=== PATIENT | male | born 1945 | race Caucasian/White ===

== ENCOUNTER 2018-01-03 08:14 | Day surgery (SDC) | payer MEDICARE, BC ==
[2018-01-03] VITALS (7 sets, daily range): BP systolic 115–145; BP diastolic 62–75; PULSE 70–79; TEMP 97.9
[~2018-01-03] VITALS: Ht 170.2 cm; Wt 132.0 kg
[~2018-01-03 08:14] MED LIST: ALDACTONE 25MG25 M1 PO; CEPHALEXIN500 M1 PO; COUMADIN 6MG6 MG/TAB PO; ELIQUIS 5MG PO; GLUCOTROL10 MG PO; LANTUS100 U/ML SC; LANTUS100 U/ML SQ; PACERONE200 MG PO; PRINZIDE 12.5 M1 TA1 PO; SYNTHROID0.05 MG/TA PO; SYNTHROID0.075 MG/T PO; SYNTHROID0.2 MG/TAB PO; TRADJENTA5 MG PO; ZIAC 5/6.25MG T1 TAB PO
[2018-01-03 08:56] LABS: HEMATOCRIT 39.4 % (42.0-52.0); HEMOGLOBIN 12.9 g/dl (13.5-18.0); MEAN CELL VOLUME 88 fl (80.0-100.0); MEAN CORPUSCULAR HEMOGLOBIN 29 pg (27.0-31.0); MEAN CORPUSCULAR HGB CONC 33 g/dl (33.0-37.0); MEAN PLATELET VOLUME 9.7 fl (7.4-10.4); PLATELET COUNT 230 K/mm3 (130-400); REDCELL DISTRIBUTION WIDTH-CV 13.5 % (11.5-14.5)
[2018-01-03 08:59] LABS: INR 2.8 (0.8-3.0); PROTHROMBIN TIME 33.7 SECONDS (9.7-12.8)
[2018-01-03 09:07] LABS: CALCIUM 9.2 mg/dL (8.4-10.2); CREATININE, serum 1.43 mg/dL (0.66-1.25); POTASSIUM 4.8 mmol/L (3.4-5.0)
[2018-01-03] MEDS ORDERED: LANTUS100 U/ML SQ (09:14)
[2018-01-03] MEDS ORDERED: NOVOLOG 100U100 U/M1 SQ (09:31)
[2018-01-03] MEDS ORDERED: ACTOS 15MG TAB15 MG PO (09:33)
[2018-01-03] MEDS ORDERED: OMEGA-3 1000 MG1 CAP PO (09:34)
[2018-01-03] MEDS ORDERED: ADVIL200 MG PO (09:34)
== END 2018-01-03 12:42 | disposition home or self-care (01) ==
LOC: COL.CAR 08:14
PROVIDERS: Internal Medicine Cardiovascular Disease
DX: I48.91 Unspecified atrial fibrillation (principal); I34.0 Nonrheumatic mitral (valve) insufficiency; I12.9 Hypertensive chronic kidney disease with stage 1 through stage 4 chronic kidney disease, or unspecified chronic kidney disease; E11.22 Type 2 diabetes mellitus with diabetic chronic kidney disease; N18.9 Chronic kidney disease, unspecified; I42.9 Cardiomyopathy, unspecified; Z88.8 Allergy status to other drugs, medicaments and biological substances; Z79.4 Long term (current) use of insulin; Z79.01 Long term (current) use of anticoagulants; Z87.891 Personal history of nicotine dependence; Z82.49 Family history of ischemic heart disease and other diseases of the circulatory system; Z68.41 Body mass index [BMI] 40.0-44.9, adult
CPT/HCPCS: G9654; J2704

== ENCOUNTER 2018-12-07 06:06 | Day surgery (SDC) | payer MEDICARE, BC ==
[~2018-12-07] VITALS: Ht 171.4 cm; Wt 134.6 kg
[~2018-12-07 06:06] MED LIST changes: +ACTOS 15MG TAB15 MG PO; +ADVIL200 MG PO; +NOVOLOG 100U100 U/M1 SQ; +OMEGA-3 1000 MG1 CAP PO
[2018-12-07 07:06] VITALS: BP 141/66; PULSE 69; TEMP 98.6
[2018-12-07] MEDS ORDERED: SYNTHROID0.125 MG/T PO (07:24)
[2018-12-07] MEDS ORDERED: COUMADIN 5MG5 MG/TAB PO (07:29)
[2018-12-07] MEDS ORDERED: COUMADIN 1MG1 MG/TAB PO (07:29)
[2018-12-07 08:10] VITALS: BP 133/70; PULSE 72; TEMP 98
--- NOTE | 2018-12-07 08:10 | NUR ---
TO BAY 2 VIA CART FROM [facility], PT WALKED TO CHAIR, IN ROOM, CALL LIGHT IN REACH. PT SIPS ON WATER
[2018-12-07 08:25] VITALS: BP 134/67; PULSE 69
[2018-12-07 08:40] VITALS: BP 128/68; PULSE 71
--- NOTE | 2018-12-07 08:45 | NUR ---
DR LANDRY SEE PT AND , NO C/O, REVIEWED DISCHARGE INST. WITH PT, PRECAUTIONS AND NEXT SCREENING WITH VERBAL UNDERSTANDING. INT D'CD INTACT. PT UP IN ROOM DRESSED, DISCHARGED VIA W/C TO CAR WITH AT 0850
== END 2018-12-07 08:45 | disposition home or self-care (01) ==
LOC: SDCO 06:06
DX: Z12.11 Encounter for screening for malignant neoplasm of colon (principal); K57.30 Diverticulosis of large intestine without perforation or abscess without bleeding; E89.0 Postprocedural hypothyroidism; Z85.850 Personal history of malignant neoplasm of thyroid; K21.9 Gastro-esophageal reflux disease without esophagitis; K44.9 Diaphragmatic hernia without obstruction or gangrene; R20.2 Paresthesia of skin; R60.0 Localized edema; I10 Essential (primary) hypertension; G47.33 Obstructive sleep apnea (adult) (pediatric); Z79.01 Long term (current) use of anticoagulants; Z79.899 Other long term (current) drug therapy; E11.9 Type 2 diabetes mellitus without complications; Z79.4 Long term (current) use of insulin
CPT/HCPCS: J2704; J7030

== ENCOUNTER 2020-11-16 11:03 | Inpatient (IN) | payer MEDICARE, BC ==
[~2020-11-16] VITALS: Ht 170.2 cm; Wt 125.0 kg
[~2020-11-16 11:03] MED LIST changes: +COUMADIN 1MG1 MG/TAB PO; +COUMADIN 5MG5 MG/TAB PO; +SYNTHROID0.125 MG/T PO
--- NOTE | 2020-11-16 13:00 | NUR ---
Assessment completed, alert/oriented, vital signs stable, denies pain or discomfort, lungs diminished throughout/ no coarse or crackles noted, patient is on 15L oxymask, heart RRR/ distal pulses are palpable, cardiology was consulted for Ectopy/arrythmias noted from previous facility, meds/allergies/pharmacy reviewed and updated, notified of patient arrival, will continue to monitor
[2020-11-16] MEDS ORDERED: NOVOLOG 100U100 U/M1 SQ (13:30)
[2020-11-16] MEDS ORDERED: LASIX 20MG TABL20 MG PO (13:39)
[2020-11-16 15:42] LABS: ARTERIAL BLD GAS O2 SATURATION 94.6 % (92-100); ARTERIAL BLD GAS TCO2 CT 18.2; ARTERIAL BLOOD GAS BASE EXCESS -6.5 (-2-2); ARTERIAL BLOOD GAS HCO3 17.3 meq/L (22-26); ARTERIAL BLOOD GAS pH 7.38 (7.35-7.45)
[2020-11-16 16:00] VITALS: BP 126/64; PULSE 80; TEMP 98.3
[2020-11-16 16:29] VITALS: BP 126/64; PULSE 80; TEMP 98.3
[2020-11-16 18:16] VITALS: TEMP 98
[2020-11-16 20:03] VITALS: BP 118/38; PULSE 70; TEMP 98.3
--- NOTE | 2020-11-16 20:27 | NUR ---
Entered pt room for scheduled O2 check; pt not wearing mask, oxymask wrapped at his feet, tachypnea, and clenching bed rail while laying down, in distess, SpO2 70-73%. Untangled and replaced Oxymask, running at 15+ LPM, took many minutes for sats to reach mid-upper 80s, plateauing. Preped pt's CPAP from home to place on pt while going to get differed mode of O2 to better meet pt's needs. which, thankfully, had a high prescription of [id number] set. Bleeding O2 into home CPAP at 15 LPM, pt's sats recovered to 94%, HR 70, BR and distress easing, pt relaxing. Considering improvement, will monitor pt's status before recommending BiPAP to provider. Got pt a urinal to use in bed and insturcted him to never take his O2 off, and to call for help if the need arises for him to get out of bed. Nurse's aide is aware, will figure out who nurse is and inform as well.
--- NOTE | 2020-11-16 20:45 | NUR ---
Pt assessment complete. Pt is sleeping in bed upon entry, arouses to voice. Currently wearing his Cpap. Pt denies any pain, but does jump with pain when bilateral legs are touched. Has no N/V/D. POC discussed with patient who verbalizes understanding. No needs at this time. Call light within reach.
[2020-11-16 23:47] VITALS: BP 92/46; PULSE 68; TEMP 99.1
[2020-11-17 04:22] VITALS: BP 98/59; PULSE 74; TEMP 97.7
[2020-11-17 07:51] LABS: HEMATOCRIT 41.7 % (42.0-52.0); MEAN CELL VOLUME 85 fl (80.0-100.0); MEAN CORPUSCULAR HEMOGLOBIN 28 pg (27.0-31.0); MEAN CORPUSCULAR HGB CONC 34 g/dl (33.0-37.0); MEAN PLATELET VOLUME 11.2 fl (7.4-10.4); PLATELET COUNT 255 K/mm3 (130-400); RED BLOOD COUNT 4.93 M/mm3 (4.20-5.60); REDCELL DISTRIBUTION WIDTH-CV 13.6 % (11.5-14.5)
[2020-11-17 07:58] LABS: ALBUMIN 3.3 gm/dL (3.5-5.0); BILIRUBIN,TOTAL 0.5 mg/dL (0.0-1.0); CREATININE, serum 2.18 (0.66-1.25); MAGNESIUM 2.2 mg/dL (1.6-2.3); POTASSIUM 4.5 mmol/L (3.4-5.0); TOTAL PROTEIN 6.2 gm/dL (6.4-8.2)
[2020-11-17 08:07] LABS: TROPONIN-I 0.04 ng/mL (0.000-0.035)
[2020-11-17 08:17] LABS: INR 3.7 (0.8-3.0); PROTHROMBIN TIME 41.8 SECONDS (9.7-12.8)
[2020-11-17 08:43] VITALS: BP 99/47; PULSE 71; TEMP 99.1
[2020-11-17 08:50] LABS: BAND 4 % (0-10); LYMPHOCYTE 10 % (20.0-51.0); NEUTROPHILS 80 % (42.0-75.2); PLATELET ESTIMATE NORMAL (NORMAL)
--- NOTE | 2020-11-17 11:48 | NUR ---
Assessment completed, alert/oriented, vital signs stable, blood pressure a little soft and running a low grade temp, patient overall does not feel well, still having significant O2 demands/ c-pap with 15L. bleed in, lungs CTA/ diminished, heart RRR/distal pulses are palabple, will continue to monitor
[2020-11-17 12:01] VITALS: BP 108/58; PULSE 70; TEMP 98.3
--- NOTE | 2020-11-17 16:29 | NUR ---
The patient is Covid positive. Nurse Substance Abuse contacted the patient's , Rhonda #[phone] to complete initial intake. The patient lives in [place] with Rhonda. The patient uses a CPAP and is independent. The patient's PCP is Dr. Barnes and patient receives medications at [facility] in [place]. The patient does not have advanced directives in the EMR but Rhonda states they are complete. She will send copies to this SW either via fax or email. The plan is to return home at discharge. The patient is currently on 60L of oxygen and does not use oxygen at home, will continue to monitor the patient's oxygen needs and plan accordingly.
[2020-11-17 16:43] VITALS: BP 131/66; PULSE 71; TEMP 98.9
[2020-11-17 19:29] VITALS: BP 108/56; PULSE 70; TEMP 98.2
[2020-11-17 23:33] VITALS: BP 108/67; PULSE 75; TEMP 97.5
[2020-11-18 04:10] VITALS: BP 116/59; PULSE 70; TEMP 97.6
[2020-11-18 08:06] VITALS: BP 124/67; PULSE 73; TEMP 97.5
--- NOTE | 2020-11-18 09:20 | NUR ---
Pt sleeping upon entry, easily awakened, no C/O pain at this time. Shift assessments complete, left Pt call light in reach, bed in lowest position.
[2020-11-18 09:46] LABS: HEMATOCRIT 43.7 % (42.0-52.0); HEMOGLOBIN 14.6 g/dl (13.5-18.0); MEAN CELL VOLUME 84 fl (80.0-100.0); MEAN CORPUSCULAR HEMOGLOBIN 28 pg (27.0-31.0); MEAN CORPUSCULAR HGB CONC 33 g/dl (33.0-37.0); MEAN PLATELET VOLUME 10.8 fl (7.4-10.4); PLATELET COUNT 301 K/mm3 (130-400); RED BLOOD COUNT 5.21 M/mm3 (4.20-5.60); REDCELL DISTRIBUTION WIDTH-CV 13.7 % (11.5-14.5)
[2020-11-18 09:50] LABS: PROTHROMBIN TIME 33.7 SECONDS (9.7-12.8)
[2020-11-18 10:16] LABS: ALBUMIN 3.3 gm/dL (3.5-5.0); BILIRUBIN,TOTAL 0.5 mg/dL (0.0-1.0); C-REACTIVE PROTEIN 5.4 mg/dL (0.0-0.9); CALCIUM 8.3 mg/dL (8.4-10.2); CREATININE, serum 1.89 (0.66-1.25); POTASSIUM 4.9 mmol/L (3.4-5.0); TOTAL PROTEIN 6.3 gm/dL (6.4-8.2)
[2020-11-18 11:45] VITALS: BP 127/64; PULSE 69; TEMP 98.1
[2020-11-18 17:42] VITALS: BP 141/64; PULSE 70; TEMP 98.2
[2020-11-18 20:04] VITALS: BP 126/55; PULSE 70; TEMP 98
[2020-11-19] VITALS (11 sets, daily range): BP systolic 115–130; BP diastolic 43–71; PULSE 69–71; TEMP 97.5–99.6
[2020-11-19 07:10] LABS: HEMATOCRIT 44.1 % (42.0-52.0); HEMOGLOBIN 14.4 g/dl (13.5-18.0); MEAN CELL VOLUME 87 fl (80.0-100.0); MEAN CORPUSCULAR HEMOGLOBIN 28 pg (27.0-31.0); MEAN CORPUSCULAR HGB CONC 33 g/dl (33.0-37.0); MEAN PLATELET VOLUME 11.1 fl (7.4-10.4); PLATELET COUNT 316 K/mm3 (130-400); RED BLOOD COUNT 5.08 M/mm3 (4.20-5.60); REDCELL DISTRIBUTION WIDTH-CV 13.8 % (11.5-14.5)
--- NOTE | 2020-11-19 07:22 | NUR ---
PATIENT ON OWN CPAP AT 15 L BLEED IN, SPO2 92%.
[2020-11-19 07:24] LABS: CALCIUM 8.6 mg/dL (8.4-10.2); CREATININE, serum 1.89 (0.66-1.25); POTASSIUM 5.2 mmol/L (3.4-5.0)
[2020-11-19 07:49] LABS: BAND 4 % (0-10); LYMPHOCYTE 3 % (20.0-51.0); METAMYELOCYTE 1 % (0-0); NEUTROPHILS 85 % (42.0-75.2)
[2020-11-19 07:50] LABS: PLATELET ESTIMATE NORMAL (NORMAL)
--- NOTE | 2020-11-19 08:30 | NUR ---
PT AOX4, DROWSY IN ROOM, ON CPAP WITH 15L BLEED IN. BREAKFAST BROUGHT IN TO ROOM, PT SWITCHED TO OXYMASK 15L. PT SATTING 90-91% ON IT. ICE WATER BROUGHT IN, VITALS TAKEN, MEDICATIONS GIVEN, ASSESSMENT PERFORMED, PT REPORTS FEELING SOB WHEN HE SITS UP BUT NOT AT REST, URINAL EMPTIED, NO OTHER NEEDS.
[2020-11-19 10:41] LABS: INR 2.3 (0.8-3.0); PROTHROMBIN TIME 26.3 SECONDS (9.7-12.8)
--- NOTE | 2020-11-19 12:14 | NUR ---
PT BS 142, CALLED CHRISSY ABOUT CONCERN OF 10UNITS NOVOLOG BEING TOO MUCH, CHRISSY SAID TO HOLD FOR NOW.
--- NOTE | 2020-11-19 14:00 | NUR ---
ASKED PT IF HE WAS OK RECIEVING PLASMA. HE STATED "THE PLASMA FROM SOMEONE ELSE TO HELP WITH COVID?". I RESPONDED YES, HE WOULD BE GETTING THEIR ANTIBODIES FROM THE PLASMA. PT RESPONDED WITH "YEAH, IM EXCITED ABOUT THAT TREATEMENT". 2ND WITNESS WAS JAYASHREE SWENSON.
--- NOTE | 2020-11-19 15:00 | NUR ---
EDUCATED PT ON S/S OF AN INFUSION REACTION, PT VERBALIZES UNDERSTANDING. VITALS TAKEN, PLASMA VERIFIED WITH JAYASHREE MOODY. PLASMA HUNG AT 60ML/HR FOR FIRST 15MIN, STAYED WITH PT FOR FIRST 15MIN. WILL INC RATE AT END OF 15MIN IF PT TOLERATING WELL. PT REPORTS A "WHEEZE" THAT EARLIER STARTED TODAY, OFFERED BREATHING TREATMENT AND PT REFUSED.
--- NOTE | 2020-11-19 16:28 | NUR ---
The patient is on 15L of oxgyen at this time.
--- NOTE | 2020-11-19 17:24 | NUR ---
PT ON 12L OXYMASK, PT STATES HE CAN TELL HE IS IMPROVING EVERYDAY. HE SAYS AMBULATING TO THE BATHROOM IS EASIER EVEN THOUGH HE STILL GETS SOB. PT RECIEVED CONVALESCENT PLASMA TODAY, PT RECIEVED REMDESIVIR. PT DENIES PAIN OR DISCOMFORT, TALKS ABOUT WANTING TO GET WELL FREQUENTLY FOR HIS . ICE AND DINNER BROUGHT IN FOR PT. INSULIN SCHEDULED CHANGED TO 7 UNITS INSTEAD OF 10. NO OTHER NEEDS.
--- NOTE | 2020-11-19 20:30 | NUR ---
Initial shift assessment done- denies pain except for feet with neuropathy, Tele on, o2 at 12L/oxymask- sats 94-95%% states not SOB at this time- feeling "just a little better", does not want a HS snack but requesting some juice-
[2020-11-20 04:58] VITALS: BP 118/58; PULSE 72; TEMP 99.8
--- NOTE | 2020-11-20 05:34 | NUR ---
Quiet night-- o2 sats 95-96% on 12L oxymask,, did desat down to the mid 80,s when got up to bathroom during the night--took 5 minutes to recover back to the mid 90,s,, told to use the urinal during the night
[2020-11-20 07:12] LABS: PROTHROMBIN TIME 22.7 SECONDS (9.7-12.8)
[2020-11-20 07:14] LABS: HEMATOCRIT 42.8 % (42.0-52.0); HEMOGLOBIN 14.4 g/dl (13.5-18.0); MEAN CELL VOLUME 86 fl (80.0-100.0); MEAN CORPUSCULAR HEMOGLOBIN 29 pg (27.0-31.0); MEAN CORPUSCULAR HGB CONC 34 g/dl (33.0-37.0); MEAN PLATELET VOLUME 10.8 fl (7.4-10.4); PLATELET COUNT 344 K/mm3 (130-400); REDCELL DISTRIBUTION WIDTH-CV 13.6 % (11.5-14.5)
[2020-11-20 07:26] LABS: CALCIUM 8.4 mg/dL (8.4-10.2); CREATININE, serum 1.68 (0.66-1.25); POTASSIUM 4.5 mmol/L (3.4-5.0)
[2020-11-20 08:31] LABS: LYMPHOCYTE 8 % (20.0-51.0); METAMYELOCYTE 1 % (0-0); NEUTROPHILS 86 % (42.0-75.2); PLATELET ESTIMATE NORMAL (NORMAL)
[2020-11-20 08:36] VITALS: BP 128/56; PULSE 72; TEMP 97.5
--- NOTE | 2020-11-20 09:14 | NUR ---
PT IN ROOM RESTING IN BED, PT SOB DUE TO WALK TO BATHROOM. PULSE OX CURRENTLY AT 91% ON 15L. GOLF COURSE LABORER REPORTED PT UP TO BATHROOM INDEPENDENTLY AND WHEN BACK IN BED SHE WALKED IN AND CHECKED O2 SAT AND IT WAS SITTING AT 77%. PT TAKES APPROX 10-15MIN TO RECOVER. EDUCATED HIM TO USE BEDSIDE COMMODE DUE TO STRAIN ON RESPIRATORY STATUS. PT UNHAPPY BUT AGREED TO USE IT. MEDICATIONS GIVEN, VITALS REVIEWED, ASSESSMENT PERFORMED, IV PATENT, PT DENIES PAIN/DISCOMFORT, NO OTHER NEEDS.
--- NOTE | 2020-11-20 10:05 | NUR ---
PT CALLED SAYING HE RIPPED OUT IV AND WAS BLEEDING. PT IV STILL IN HAND WHEN ENTERED ROOM BUT BLEEDING SLIGHTLY. IV REMOVED FROM HAND AND FLUIDS TRANSFERRED FROM LAC IV SITE.
[2020-11-20 11:55] VITALS: BP 126/59; PULSE 74; TEMP 98.1
--- NOTE | 2020-11-20 14:33 | NUR ---
MOVED CPAP FOR PT SO HE COULD SIT IN CHAIR. BROUGHT IN ICE FOR PT AND BLANKET FOR HIS CHAIR. PT IN [employer], REPORTS HE WANTS TO TAKE A NAP.
--- NOTE | 2020-11-20 17:09 | NUR ---
pt pleasant, still up to chair in room, remdesivir running, pt denies pain or discomfort at this time, pt on oxymask in room, no other needs, uneventful shift.
[2020-11-20 17:10] VITALS: BP 123/65; PULSE 70; TEMP 97.7
[2020-11-20 19:25] VITALS: BP 124/58; PULSE 69; TEMP 98.3
--- NOTE | 2020-11-20 20:50 | NUR ---
Received report from Michelle. Seen patient asleep in bed. Woke up patient for his night meds and assesment. He denies pain. On 15L oxymask. He denies any needs right now. SPO2 at 92%. Call light within reach.
[2020-11-21] VITALS (7 sets, daily range): BP systolic 108–135; BP diastolic 57–73; PULSE 69–72; TEMP 97.5–98.3
--- NOTE | 2020-11-21 06:11 | NUR ---
Patient had uneventful night. He is wearing his CPAP now. SPO2 at 96%. He denies pain. Call light within reach.
--- NOTE | 2020-11-21 08:00 | NUR ---
Patient sitting up on the edge of bed eating breakfast. A&Ox4. VSS 60L Airvo, no reported SOB. Denies pain, discomfort and SOB. IV hand, intact. Patient assisted with getting CPAP on. No further needs expressed from the patient. Call light within reach
[2020-11-21 08:07] LABS: MEAN CELL VOLUME 85 fl (80.0-100.0); MEAN CORPUSCULAR HEMOGLOBIN 29 pg (27.0-31.0); MEAN CORPUSCULAR HGB CONC 33 g/dl (33.0-37.0); MEAN PLATELET VOLUME 10.7 fl (7.4-10.4); PLATELET COUNT 313 K/mm3 (130-400); RED BLOOD COUNT 4.92 M/mm3 (4.20-5.60); REDCELL DISTRIBUTION WIDTH-CV 13.7 % (11.5-14.5)
[2020-11-21 08:25] LABS: CALCIUM 8.4 mg/dL (8.4-10.2); CREATININE, serum 1.84 (0.66-1.25); POTASSIUM 4.6 mmol/L (3.4-5.0)
[2020-11-21 11:00] LABS: BAND 2 % (0-10); LYMPHOCYTE 2 % (20.0-51.0); NEUTROPHILS 89 % (42.0-75.2); PLATELET ESTIMATE NORMAL (NORMAL)
--- NOTE | 2020-11-21 17:28 | NUR ---
Patient sitting up in the recliner watching TV. A&Ox4. VSS 15L oxymask, no reported SOB. IV CDI. Denies pain and discomfort. Patient had an uneventful day. No further needs expressed from the patient. Call light within reach
--- NOTE | 2020-11-21 19:15 | NUR ---
Received report from Malu. Patient awake, sitting in the recliner. On Oxymask at 15L. He denies pain. Call light within reach.
--- NOTE | 2020-11-21 19:31 | NUR ---
Called Laura LEHMAN, to inform her about patient's blood glucose of 402mg/dl. Patient's last meal was 1745H. She said to just go ahead and give the scheduled Novolog and Levemir.
[2020-11-21 21:38] LABS: CREATININE, serum 1.75 (0.66-1.25)
[2020-11-21 22:19] LABS: POTASSIUM 5.5 mmol/L (3.4-5.0)
--- NOTE | 2020-11-21 23:50 | NUR ---
Informed patient that his glucose monitoring was changed to every 4 hours. Called Laura regarding blood glucose of 299mg/dl. Bolus of NS 500ml ongoing.
[2020-11-22 04:42] VITALS: BP 130/61; PULSE 72; TEMP 97.8
--- NOTE | 2020-11-22 06:04 | NUR ---
Latest blood gluocse is 181mg/dl. Still on oxymask 15L. He denies pain. Call light within reach.
[2020-11-22 08:35] LABS: HEMATOCRIT 41.3 % (42.0-52.0); HEMOGLOBIN 13.8 g/dl (13.5-18.0); MEAN CELL VOLUME 86 fl (80.0-100.0); MEAN CORPUSCULAR HEMOGLOBIN 29 pg (27.0-31.0); MEAN CORPUSCULAR HGB CONC 33 g/dl (33.0-37.0); MEAN PLATELET VOLUME 10.7 fl (7.4-10.4); PLATELET COUNT 305 K/mm3 (130-400); RED BLOOD COUNT 4.81 M/mm3 (4.20-5.60); REDCELL DISTRIBUTION WIDTH-CV 13.6 % (11.5-14.5)
[2020-11-22 08:43] LABS: INR 2.7 (0.8-3.0); PROTHROMBIN TIME 30.7 SECONDS (9.7-12.8)
[2020-11-22 08:45] LABS: CREATININE, serum 1.83 (0.66-1.25); POTASSIUM 4.9 mmol/L (3.4-5.0)
[2020-11-22 08:47] VITALS: BP 113/57; PULSE 70; TEMP 97.4
--- NOTE | 2020-11-22 09:00 | NUR ---
Patient sitting up in the recliner watching TV. A&Ox4. VSS 15L Oxymask, no reporting SOB. IV CDI, coban covering. No further needs expressed from the patient. Call light within reach
[2020-11-22 10:15] LABS: BAND 2 % (0-10); LYMPHOCYTE 6 % (20.0-51.0); NEUTROPHILS 88 % (42.0-75.2); PLATELET ESTIMATE NORMAL (NORMAL)
[2020-11-22 12:00] VITALS: BP 106/64; PULSE 70
--- NOTE | 2020-11-22 12:32 | NUR ---
Patient continues to be on 15 L of oxygen. Patient plans to return home with Rhonda upon discharge. No new needs at this time. Social work will continue to follow.
[2020-11-22 15:17] VITALS: BP 118/59; PULSE 69; TEMP 98
--- NOTE | 2020-11-22 17:14 | NUR ---
Patient had an uneventful day. Spent the day sitting in the recliner watching football. A&Ox4. VSS 15L oxymask, no reported SOB. IV CDI, coban covering. Denies pain and discomfort. No further needs expressed from the patient. Call light within reach
[2020-11-22 20:36] VITALS: BP 129/58; PULSE 70; TEMP 98.1
--- NOTE | 2020-11-22 23:21 | NUR ---
Patient A/O x4. Patient denies any pain or discomfort. Patient currently on 15L via oxymask. SPO2 92%. Patient denies SOB or dyspnea. BS 304 at 20:37 pm. Scheduled Novolog and Levemir given per JAN. All of scheduled meds given at tis time. Left hand IV site has no s/s of complications. Call light within reach. Patient denies any needs at this time.
[2020-11-23] VITALS: BP 117/55; PULSE 71; TEMP 98.3
[2020-11-23 04:26] VITALS: BP 100/64; PULSE 70; TEMP 97.5
--- NOTE | 2020-11-23 04:58 | NUR ---
Patient BS 68 at 04:23 am. Offered 4 oz of juice and Honey gram crackers. BS 90 at 04:52 am. No actue distress noted. Will give report to day shift nurse.
[2020-11-23 07:38] VITALS: BP 112/53; PULSE 70; TEMP 98.1
--- NOTE | 2020-11-23 09:40 | NUR ---
PT REFUSED AM LAB DRAWS.
--- NOTE | 2020-11-23 09:41 | NUR ---
CONTACTED DR. LOPEZ'S OFFICE FOR BASELINE LABS TO BE FAXED HERE.
--- NOTE | 2020-11-23 09:53 | NUR ---
PT RESTING IN RECLINER AFTER BREAKFAST. EATING AND DRINKING WITH NO N/V PT DENIES PAIN AT THIS TIME.
--- NOTE | 2020-11-23 10:05 | NUR ---
The patient's , Rhonda contacted this Insulation Worker Apprentice. Rhonda would like Hospitalist to contact her during rounds or call with an update. Cell # [phone]. The patient remains on 15L of oxygen. SW collaborated the above information with hospitalist.
[2020-11-23 11:08] VITALS: BP 109/59; PULSE 70; TEMP 97.8
[2020-11-23 16:56] VITALS: BP 115/60; PULSE 70; TEMP 98
--- NOTE | 2020-11-23 16:57 | NUR ---
REPORT TO DAWN BLANC.
[2020-11-23 18:50] LABS: HEMATOCRIT 40.5 % (42.0-52.0); HEMOGLOBIN 13.4 g/dl (13.5-18.0); MEAN CELL VOLUME 85 fl (80.0-100.0); MEAN CORPUSCULAR HEMOGLOBIN 28 pg (27.0-31.0); MEAN CORPUSCULAR HGB CONC 33 g/dl (33.0-37.0); MEAN PLATELET VOLUME 10.6 fl (7.4-10.4); PLATELET COUNT 330 K/mm3 (130-400); RED BLOOD COUNT 4.75 M/mm3 (4.20-5.60); REDCELL DISTRIBUTION WIDTH-CV 13.5 % (11.5-14.5)
[2020-11-23 19:09] LABS: CALCIUM 8.2 mg/dL (8.4-10.2); CREATININE, serum 1.86 (0.66-1.25); POTASSIUM 4.4 mmol/L (3.4-5.0)
[2020-11-23 19:13] LABS: BAND 3 % (0-10); EOSINOPHIL 1 % (0-4); LYMPHOCYTE 9 % (20.0-51.0); NEUTROPHILS 85 % (42.0-75.2); PLATELET ESTIMATE NORMAL (NORMAL)
[2020-11-23 19:20] LABS: TROPONIN-I 0.013 ng/mL (0.000-0.035)
[2020-11-23 20:38] VITALS: BP 116/56; PULSE 72; TEMP 97.7
--- NOTE | 2020-11-24 00:04 | NUR ---
Patient sitting in the chair and watching TV upon enter the room. Patient denies pain or discomfort. Denies SOB or dyspnea while at rest. Currently on oxymask 15L. SPO2 94% at this time. No acute respiratory distress noted. Patient ate 100% of dinner. Scheduled meds given per JAN. Left hand IV flushed with NS without difficulty. No s/s of IV complications noted. Call light within reach. patient denies any needs at this time.
[2020-11-24 00:43] VITALS: BP 104/43; PULSE 72; TEMP 98.2
[2020-11-24 04:10] VITALS: BP 105/54; PULSE 70; TEMP 97.4
--- NOTE | 2020-11-24 05:01 | NUR ---
Patient slept well throughout the night. No c/o pain or discomfort. No acute respiratory distress noted. BS 94 around 4am this morning. Call light within reach. Will give report to day shift nurse.
[2020-11-24 08:04] LABS: HEMATOCRIT 39.6 % (42.0-52.0); HEMOGLOBIN 13.1 g/dl (13.5-18.0); MEAN CELL VOLUME 86 fl (80.0-100.0); MEAN CORPUSCULAR HEMOGLOBIN 29 pg (27.0-31.0); MEAN CORPUSCULAR HGB CONC 33 g/dl (33.0-37.0); MEAN PLATELET VOLUME 10.8 fl (7.4-10.4); PLATELET COUNT 282 K/mm3 (130-400); RED BLOOD COUNT 4.59 M/mm3 (4.20-5.60); REDCELL DISTRIBUTION WIDTH-CV 13.6 % (11.5-14.5)
[2020-11-24 08:08] LABS: INR 2.8 (0.8-3.0); PROTHROMBIN TIME 31.2 SECONDS (9.7-12.8)
[2020-11-24 08:18] VITALS: BP 120/63; PULSE 70; TEMP 97.8
[2020-11-24 08:20] LABS: CREATININE, serum 1.8 (0.66-1.25); POTASSIUM 3.9 mmol/L (3.4-5.0)
[2020-11-24 08:48] LABS: EOSINOPHIL 4 % (0-4); LYMPHOCYTE 7 % (20.0-51.0); NEUTROPHILS 81 % (42.0-75.2); PLATELET ESTIMATE NORMAL (NORMAL)
--- NOTE | 2020-11-24 10:35 | NUR ---
Pt assessment completed and charted, medications administered per mar. Pt sleeping in bed upon entry and woke up with VS. VSS. Pt on 15l oxymask, RT in to assess pt, pt satting well, O2 turned down to 12L, will continue to assess. pt has LH INT IV, does not flush, will need to reposition or start new IV. Pt not receiving any IV meds. Pt denies any pain, "just neuropathy to legs". No further needs expressed.
[2020-11-24 11:33] VITALS: BP 118/61; PULSE 67; TEMP 97.4
--- NOTE | 2020-11-24 14:46 | NUR ---
RT NOTIFIED THIS NURSE, PT DOWN TO 8L OXYMASK, TOLERATING WELL.
[2020-11-24 15:58] VITALS: BP 111/47; PULSE 70; TEMP 98
--- NOTE | 2020-11-24 19:00 | NUR ---
Received report from Asmita. Seen patient sitting in the recliner, eating his dinner. On Oxymask 8L. Denies needs at this time.
[2020-11-24 19:29] VITALS: BP 103/50; PULSE 72; TEMP 98
--- NOTE | 2020-11-24 21:10 | NUR ---
Assesment done. Patient denies pain. RT informed this nurse that she placed patient down to Oxymask 6L.
[2020-11-25 08:00] VITALS: BP 104/55; BP 154/78; PULSE 82; PULSE 94; TEMP 97.2; TEMP 98
[2020-11-25 12:37] LABS: HEMATOCRIT 37.6 % (42.0-52.0); HEMOGLOBIN 12.5 g/dl (13.5-18.0); MEAN CELL VOLUME 86 fl (80.0-100.0); MEAN CORPUSCULAR HEMOGLOBIN 28 pg (27.0-31.0); MEAN CORPUSCULAR HGB CONC 33 g/dl (33.0-37.0); MEAN PLATELET VOLUME 10.3 fl (7.4-10.4); PLATELET COUNT 278 K/mm3 (130-400); REDCELL DISTRIBUTION WIDTH-CV 13.4 % (11.5-14.5)
[2020-11-25 13:12] VITALS: BP 111/52; PULSE 69; TEMP 97.8
[2020-11-25 13:23] LABS: BAND 4 % (0-10); EOSINOPHIL 4 % (0-4); LYMPHOCYTE 16 % (20.0-51.0); NEUTROPHILS 71 % (42.0-75.2); PLATELET ESTIMATE NORMAL (NORMAL)
[2020-11-25 13:32] LABS: CALCIUM 7.8 mg/dL (8.4-10.2); CREATININE, serum 1.62 (0.66-1.25); POTASSIUM 4.3 mmol/L (3.4-5.0)
--- NOTE | 2020-11-25 14:43 | NUR ---
Watch Assembler contacted the patient's to revisit the discharge plan. The plan is to return home. The patient is currently on 6L of oxgyen and does not use oxygen at baseline.
[2020-11-25 16:35] VITALS: BP 109/57; PULSE 72; TEMP 98.2
--- NOTE | 2020-11-25 17:38 | NUR ---
PT REPORTS FEELING VERY TIRED. BP SYSTOLIC ABOVE 100 BUT STILL LOW. INSULIN GIVEN WITH DINNER, PT DENIES PAIN OR DISCOMFORT, DOWN TO 4L OXYMASK, OVERALL UNEVENTFUL SHIFT.
--- NOTE | 2020-11-25 19:00 | NUR ---
RECEIVED CHANGE OF SHIFT REPORT FROM DAY SHIFT NURSEDEREK
[2020-11-25 19:19] VITALS: BP 121/55; PULSE 69; TEMP 98.2
--- NOTE | 2020-11-25 20:27 | NUR ---
SCANNER NOT WORKING IN ROOM, MANUAL ENTRY FOR MEDICATION ADMIN DOCUMENTATION.
[2020-11-26] VITALS (7 sets, daily range): BP systolic 91–122; BP diastolic 49–64; PULSE 68–72; TEMP 97.4–98.7
[2020-11-26 07:29] LABS: HEMATOCRIT 39.5 % (42.0-52.0); HEMOGLOBIN 12.8 g/dl (13.5-18.0); MEAN CELL VOLUME 87 fl (80.0-100.0); MEAN CORPUSCULAR HEMOGLOBIN 28 pg (27.0-31.0); MEAN CORPUSCULAR HGB CONC 32 g/dl (33.0-37.0); MEAN PLATELET VOLUME 10.8 fl (7.4-10.4); PLATELET COUNT 242 K/mm3 (130-400); RED BLOOD COUNT 4.54 M/mm3 (4.20-5.60); REDCELL DISTRIBUTION WIDTH-CV 13.4 % (11.5-14.5)
[2020-11-26 07:32] LABS: CALCIUM 8.4 mg/dL (8.4-10.2); CREATININE, serum 1.77 (0.66-1.25); POTASSIUM 4.9 mmol/L (3.4-5.0)
--- NOTE | 2020-11-26 07:33 | NUR ---
CHANGE OF SHIFT REPORT GIVEN TO DAY SHIFT NURSE
--- NOTE | 2020-11-26 08:20 | NUR ---
PT AOX4, PLEASANT, VITALS REVIEWED, JUICE BROUGHT IN FOR LOWER BS, INSULIN HELD FOR BS OF 72. PT EATING BREAKFAST, ASSESSMENT PERFORMED, PT REPORTS TENDERNESS WHEN PALPATING VASQUEZ SHINS, DENIES PAIN AT REST. WEARING OXYMASK 4L. UP TO CHAIR IN ROOM, CALL LIGHT WITHIN REACH, NO OTHER NEEDS.
[2020-11-26 08:43] LABS: INR 2.4 (0.8-3.0); PROTHROMBIN TIME 26.8 SECONDS (9.7-12.8)
[2020-11-26 09:13] LABS: BAND 4 % (0-10); BASOPHIL 1 % (0-2); EOSINOPHIL 2 % (0-4); LYMPHOCYTE 6 % (20.0-51.0); NEUTROPHILS 77 % (42.0-75.2); PLATELET ESTIMATE NORMAL (NORMAL)
--- NOTE | 2020-11-26 17:39 | NUR ---
PT PLEASANT, EAGER FOR DISCHARGE, AOX4, NO C/O PAIN OR DISCOMFORT, INSULIN GIVEN, PT ON 3L OXYGEN, NO OTHER NEEDS AT THIS TIME.
--- NOTE | 2020-11-26 20:15 | NUR ---
Received report from Michelle. Seen patient asleep in bed. Woke up patient for his night medicines. He is on Oxymask 3L. He denies pain. Urinal at the foot part of the bed. Asked him if he wants me to put it on the bedside table, he said that the doctor encouraged him to try to walk in the bathroom but he still have a bit of shortness of breath when he move and wants the urinal on the same place. Call light within reach.
[2020-11-27 00:02] VITALS: BP 103/47; PULSE 71; TEMP 98.1
[2020-11-27 03:55] VITALS: BP 113/43; PULSE 72; TEMP 98
--- NOTE | 2020-11-27 06:55 | NUR ---
Patient's blood glucose at midnight was 84mg/dl. He asked the MARRIAGE AND FAMILY COUNSELOR for juice and snacks. At 0400H, blood glucose went up to 316mg/dl. Still on Oxymask 3lpm, SPO2 of 96%. He denies pain. No other needs at this time.
[2020-11-27 08:09] VITALS: BP 118/64; PULSE 70; TEMP 97.6
--- NOTE | 2020-11-27 08:25 | NUR ---
PT PLEASANT, AOX4, ALL MEDICATIONS GIVEN, VITALS REVIEWED, ASSESSMENT PERFORMED. PT ON 2.5 L OXYMASK, PT HAS NONPRODUCTIVE COUGH. PT REPORTS EPISODE AROUND MIDNIGHT WHERE HE AMBULATED TO THE BATHROOM AND THEN FELT VERY DIZZY AND WEAK AND BARELY MADE IT BACK TO BED. SYSTOLIC PRESSURE AT THE TIME OVER 100 AND BS ON LOWER END OF NORMAL, SNACK GIVEN AND PT REPORTS FEELING MUCH BETTER AFTER HIS SNACK. PT NERVOUS ABOUT DISCHARGE TODAY AFTER THIS INCIDENT. PT DENIES PAIN OR DISCOMFORT.
[2020-11-27] MEDS ORDERED: COUMADIN 3MG3 MG/TAB PO (11:24)
[2020-11-27] MEDS ORDERED: RT Albuterol HFA MDI IH (11:25)
[2020-11-27] MEDS ORDERED: OXYGEN NASAL.CANN (11:27)
[2020-11-27] MEDS ORDERED: ZEBETA 5MG5 MG PO (11:28)
[2020-11-27 12:00] VITALS: BP 94/64; PULSE 70; TEMP 98.1
[2020-11-27 12:18] VITALS: BP 111/62
--- NOTE | 2020-11-27 13:13 | NUR ---
DISCHARGE EDUCATION PROVIDED, EDUCATED ON CHANGES WITH MEDICATIONS, IV REMOVED, EDUCATED ON HOME OXYGEN USE, PT HAS NO QUESTIONS AT THIS TIME.
--- NOTE | 2020-11-27 13:15 | NUR ---
The patient is to tentatively discharge home today, 11/27 with home health PT and assisted services. AGA discussed Medicare[employer]'s list of agencies with the patient's , Rhonda and she chose [facility] agency in [place]. Referral faxed and they accepted. The patient is requiring 2L of oxgyen. AGA faxed oxygen order to [facility]. Shruti reports she will take the oxygen to the patient's home at 1400 this day. Shruti will give a tank to Rhonda to bring when she picks up the patient. AGA faxed discharge orders and oxygen scripts. AGA collaborated the above information with the patient's nurse.
--- NOTE | 2020-11-27 15:50 | NUR ---
pt escorted out via wheelchair with pt belongings. pt aox4, sob with waking to wheelchair, met at ED with home oxygen, helped pt place nasal cannula with home oxygen, no other needs.
== END 2020-11-27 15:50 | disposition home health service (06) | DRG 177 ==
LOC: MEDICAL 11:03
PROVIDERS: Physician Assistant; Student in an Organized Health Care Education/Training Program; ADMIT Internal Medicine
PROC: XW14325 Transfusion of Convalescent Plasma (Nonautologous) into Central Vein, Percutaneous Approach, New Technology Group 5 (ICD-10-PCS; principal; 2020-11-20)
PROC: XW033E5 Introduction of Remdesivir Anti-infective into Peripheral Vein, Percutaneous Approach, New Technology Group 5 (ICD-10-PCS; 2020-11-20)
DX: U07.1 COVID-19 (principal); J96.01 Acute respiratory failure with hypoxia; G47.33 Obstructive sleep apnea (adult) (pediatric); E11.42 Type 2 diabetes mellitus with diabetic polyneuropathy; E11.22 Type 2 diabetes mellitus with diabetic chronic kidney disease; E78.5 Hyperlipidemia, unspecified; I48.0 Paroxysmal atrial fibrillation; I12.9 Hypertensive chronic kidney disease with stage 1 through stage 4 chronic kidney disease, or unspecified chronic kidney disease; E03.9 Hypothyroidism, unspecified; E66.9 Obesity, unspecified; E87.5 Hyperkalemia; N18.9 Chronic kidney disease, unspecified; F17.210 Nicotine dependence, cigarettes, uncomplicated; I49.9 Cardiac arrhythmia, unspecified; Z79.01 Long term (current) use of anticoagulants; Z85.850 Personal history of malignant neoplasm of thyroid; Z95.810 Presence of automatic (implantable) cardiac defibrillator; Z79.4 Long term (current) use of insulin
CPT/HCPCS: 99223-AI; 99232-AI; 99233-AI; 99239; J0696; J1815; J7030; J7040; J7050; J8540

== ENCOUNTER 2020-12-31 08:11 | Day surgery (SDC) | payer MEDICARE, BC ==
[~2020-12-31] VITALS: Ht 170.2 cm; Wt 126.4 kg
[~2020-12-31 08:11] MED LIST changes: +COUMADIN 3MG3 MG/TAB PO; +LASIX 20MG TABL20 MG PO; +OXYGEN NASAL.CANN; +RT Albuterol HFA MDI IH; +ZEBETA 5MG5 MG PO
[2020-12-31 09:24] VITALS: BP 136/71; PULSE 90; TEMP 96
[2020-12-31] MEDS ORDERED: ZEBETA 5MG5 MG PO (09:31)
[2020-12-31 09:34] LABS: HEMATOCRIT 38.3 % (42.0-52.0); HEMOGLOBIN 12.2 g/dl (13.5-18.0); MEAN CELL VOLUME 87 fl (80.0-100.0); MEAN CORPUSCULAR HEMOGLOBIN 28 pg (27.0-31.0); MEAN CORPUSCULAR HGB CONC 32 g/dl (33.0-37.0); MEAN PLATELET VOLUME 9.7 fl (7.4-10.4); PLATELET COUNT 306 K/mm3 (130-400); RED BLOOD COUNT 4.38 M/mm3 (4.20-5.60); REDCELL DISTRIBUTION WIDTH-CV 14.2 % (11.5-14.5)
[2020-12-31] MEDS ORDERED: COUMADIN 5MG5 MG/TAB PO (09:35)
[2020-12-31] MEDS ORDERED: COUMADIN 1MG1 MG/TAB PO (09:36)
[2020-12-31 09:41] LABS: INR 2.2 (0.8-3.0); PROTHROMBIN TIME 25.1 SECONDS (9.7-12.8)
[2020-12-31 09:44] LABS: PARTIAL THROMBOPLASTIN TIME 34.6 SECONDS (26.0-37.0)
[2020-12-31 09:59] LABS: CALCIUM 9.2 mg/dL (8.4-10.2); CREATININE, serum 1.96 (0.66-1.25); MAGNESIUM 1.9 mg/dL (1.6-2.3)
[2020-12-31 10:30] LABS: THYROID STIMULATING HORMONE 1.05 uIU/mL (0.465-4.680)
[2020-12-31 10:45] VITALS: BP 121/67; PULSE 69
--- NOTE | 2020-12-31 10:45 | NUR ---
PT CARE ASSUMED, REPORT FROM TUAN BLANC AT THIS TIME. PT IS AWAKE AND ALERT RESTING ON COT IN RM 11, A PACED ON MONITOR, PT DENIES PAIN OR OTHER COMPLAINTS AT THIS TIME. PT GIVEN WATER AND JUICE WHICH HE WAS ABLE TO DRINK WITH NO PROBLEM. PT AWARE OF POC.
[2020-12-31 11:00] VITALS: BP 121/64; PULSE 69
[2020-12-31 11:15] VITALS: BP 98/73; PULSE 69
[2020-12-31 11:30] VITALS: BP 104/59; PULSE 73
--- NOTE | 2020-12-31 11:39 | NUR ---
PT DOING WELL, HE HAS BEEN UP TO BR WITH STEADY GAIT. HE DID AMB TO TOILET IN ROOM 11 ON ROOM AIR, AND WAS 85% ON RA WHEN BACK TO BED, SATS UP TO 95% WITH ADDITION OF 2L/NC. PT STATES HE IS ABLE TO WEAR O2 24/7 AT HOME HE HAS A 30 FOOT EXTENSION. WE REVIEWED DC AND FU INSTRUCTIONS. PT DENIED ANY QUESTIONS OR CONCERNS. HE HAS CALLED HIS AND WE PLAN FOR DEPARTURE AT APPROX [phone].
[2020-12-31 12:00] VITALS: BP 125/80; PULSE 71
--- NOTE | 2020-12-31 12:05 | NUR ---
IV dc'd with cath intact dressing applied. pt is dressed and ready to go, no questions about dc/fu instructions. to exit via wheelchair.
== END 2020-12-31 12:05 | disposition home or self-care (01) ==
LOC: COL.CAR 08:11
PROVIDERS: Internal Medicine Cardiovascular Disease
DX: I48.0 Paroxysmal atrial fibrillation (principal); I10 Essential (primary) hypertension; U07.1 COVID-19; G47.33 Obstructive sleep apnea (adult) (pediatric); E78.1 Pure hyperglyceridemia; K21.9 Gastro-esophageal reflux disease without esophagitis; E11.42 Type 2 diabetes mellitus with diabetic polyneuropathy; Z85.850 Personal history of malignant neoplasm of thyroid; Z88.8 Allergy status to other drugs, medicaments and biological substances; Z79.4 Long term (current) use of insulin; Z87.891 Personal history of nicotine dependence; Z99.81 Dependence on supplemental oxygen
CPT/HCPCS: J2704

== ENCOUNTER → 2021-04-05 | Outpatient (CLI) | payer MEDICARE, BC | LOC: COL.RAD 10:34 | DX: R06.02 Shortness of breath (principal) ==

== ENCOUNTER → 2021-08-26 | Outpatient (CLI) | payer MEDICARE, BC | LOC: COL.RAD 12:42 | DX: M16.11 Unilateral primary osteoarthritis, right hip (principal); M23.303 Other meniscus derangements, unspecified medial meniscus, right knee ==